=== PATIENT | female | born 1965 | race Caucasian/White ===

== ENCOUNTER 2024-12-17 06:16 | Observation (INO) ==
--- NOTE | 2024-11-20 12:28 | PAT Medication Instructions ---
Medication Instructions Date of Service November 20, 2024 Home Medications Fish Oil 1 cap PO BID biotin 1 cap PO DAILY cholecalciferol (vitamin D3) 125 mcg (5,000 unit) tablet (Vitamin D3) 125 mcg PO BID epinephrine 0.3 mg/0.3 mL injection, auto-injector (EpiPen) 0.3 mg IM Q4H PRN Anaphylaxis ezetimibe 10 mg tablet (Zetia) 10 mg PO QPM ferrous sulfate 325 mg (65 mg iron) tablet (iron) 325 mg PO DAILY glipizide 10 mg tablet 10 mg PO BID glucosamine-chondroitin 250 mg-200 mg tablet (Osteo Bi-Flex) 2 tab PO QAM insulin degludec 100 unit-liraglutide 3.6 mg/mL(3 mL) subcutaneous pen (Xultophy 100/3.6) 46 unit subcut QPM lisinopril 10 mg tablet 10 mg PO QPM metformin 500 mg tablet 1,000 mg PO BID omeprazole 20 mg capsule,delayed release 20 mg PO QAM vitamin [id number] acid 1 tab PO DAILY MEDICATION INSTRUCTIONS: Continue as directed epinephrine 0.3 mg/0.3 mL injection, auto-injector (EpiPen) 0.3 mg IM Q4H PRN Anaphylaxis STOP taking 2 weeks before surgery Fish Oil 1 cap PO BID biotin 1 cap PO DAILY glucosamine-chondroitin 250 mg-200 mg tablet (Osteo Bi-Flex) 2 tab PO QAM DO NOT take the morning of surgery glipizide 10 mg tablet 10 mg PO BID cholecalciferol (vitamin D3) 125 mcg (5,000 unit) tablet (Vitamin D3) 125 mcg PO BID metformin 500 mg tablet 1,000 mg PO BID vitamin [id number]-[id number] acid 1 tab PO DAILY ferrous sulfate 325 mg (65 mg iron) tablet (iron) 325 mg PO DAILY Take morning of surgery With a small sip of water, OTHERWISE NOTHING TO EAT OR DRINK AFTER MIDNIGHT: omeprazole 20 mg capsule,delayed release 20 mg PO QAM Take evening before surgery glipizide 10 mg tablet 10 mg PO BID cholecalciferol (vitamin D3) 125 mcg (5,000 unit) tablet (Vitamin D3) 125 mcg PO BID lisinopril 10 mg tablet 10 mg PO QPM ezetimibe 10 mg tablet (Zetia) 10 mg PO QPM metformin 500 mg tablet 1,000 mg PO BID insulin degludec 100 unit-liraglutide 3.6 mg/mL(3 mL) subcutaneous pen (Xultophy 100/3.6) 46 unit subcut QPM Other Notes If you have any questions please call us at [phone] or [phone] or [phone] or [phone]
--- NOTE | 2024-11-30 11:51 | Anesthesiology Consultation ---
Date of Service November 30, 2024 Assessment & Plan (1) Encounter for pre-operative examination: - Check BSG DOS - Infectious disease screening: Per assessment on 11/30/24- No known recent infectious disease contacts or current infectious disease symptoms. - Patient acceptable risk for surgery pending surgeon-ordered PCP preop evaluation (Carol Wilde RN PRIOR AUTHORIZATION, appt 12/05). Chart Review Chart Review: Patient seen in Pre Admission Testing Teaching & Discussion Pre-Anesthesia Teaching/Discussion Notes: Instructed NPO after midnight before surgery,except medications with 15 cc of water. Medication instructions provided according to the PAT guidelines. History Surgery Operation Date: 12/17/24 09:35 Proposed Procedures p C5-C6 Anterior Cervical Discectomy and Fusion with Spinal Cord Monitoring - Wolfgang Cruz, Height/Weight Height: 5 ft 7 in Weight: 82.7 kg Allergies Allergy/AdvReac Type Severity Reaction Status Date / Time martinez Allergy Severe Gastrointestinal Verified 11/20/24 07:37 Upset peanut Allergy Severe Difficulty Verified 11/20/24 07:37 Breathing shellfish derived Allergy Severe Anaphylaxis Verified 11/20/24 07:37 Fresh Fruit Allergy Severe Anaphylaxis Uncoded 11/20/24 07:37 Fresh Vegetable Allergy Severe Anaphylaxis Uncoded 11/20/24 07:37 Medications Home Medications Medication Instructions Recorded Confirmed Last Taken Fish Oil 1 cap PO BID 11/20/24 11/20/24 Unknown biotin 1 cap PO DAILY 11/20/24 11/20/24 Unknown cholecalciferol (vitamin D3) 125 125 mcg PO BID 11/20/24 11/20/24 Unknown mcg (5,000 unit) tablet (Vitamin D3) epinephrine 0.3 mg/0.3 mL 0.3 mg IM Q4H PRN Anaphylaxis 11/20/24 11/20/24 Unknown injection, auto-injector (EpiPen) ezetimibe 10 mg tablet (Zetia) 10 mg PO QPM 11/20/24 11/20/24 Unknown ferrous sulfate 325 mg (65 mg 325 mg PO DAILY 11/20/24 11/20/24 Unknown iron) tablet (iron) glipizide 10 mg tablet 10 mg PO BID 11/20/24 11/20/24 Unknown glucosamine-chondroitin 250 mg-200 2 tab PO QAM 11/20/24 11/20/24 Unknown mg tablet (Osteo Bi-Flex) insulin degludec 100 46 unit subcut QPM 11/20/24 11/20/24 Unknown unit-liraglutide 3.6 mg/mL(3 mL) subcutaneous pen (Carl 100/3.6) lisinopril 10 mg tablet 10 mg PO QPM 11/20/24 11/20/24 Unknown metformin 500 mg tablet 1,000 mg PO BID 11/20/24 11/20/24 Unknown omeprazole 20 mg capsule,delayed 20 mg PO QAM 11/20/24 11/20/24 Unknown release vitamin L65-fagzz acid 1 tab PO DAILY 11/20/24 11/20/24 Unknown Past Medical History Medical History Acid reflux Anemia Diabetes mellitus, type 2 Oral/Injectable Hypertension Multiple food allergies Exercise / Class Metabolic Activity II 4-5 Yardwork/Stairs/Walk up hill (one FS: No CP, no SOB) Past Surgical History Surgical History Adverse effect of anesthesia "Crying" with anesthesia emergence History of colonoscopy History of esophagogastroduodenoscopy (EGD) History of tooth extraction Upper/Lower Dentures Hx of tubal ligation Past Anesthesia History No Family Hx of Anesthesia Complications and Other ("Crying" with anesthesia emergence ) History of PONV No Hx of PONV and No Hx of Motion Sickness Social History Smoking Status: Never smoker Do You Dip or Chew Tobacco: No Hx Alcohol Use: No Hx Substance Use: No substance use type: does not use Review of Systems Patient denies chest pain, shortness of breath, dyspnea on exertion, fever, chills, cough, wheezing. Physical Exam Vital Signs BP 129/75 P 78 TEMP 97.6 SP02 99%RA RESP 16 Physical Mildly decreased cervical extension range of motion. Full TMJ range of motion. TMD 3 finger breaths Mallampati Score III Dentition: full upper/lower dentures Lungs: clear throughout to auscultation Cardiac: regular rate and rhythm, no murmurs noted Spine: normal Carotid arteries: negative bruit Extremities: no LE edema Lab Results Anesthesia Preop Results Results Anesthesia Widget: WBC 6.52 K/ul (4.8-10.8) 11/30/24 Hgb 14.1 g/dl (12.0-16.0) 11/30/24 Hct 41.2 % (37.0-47.0) 11/30/24 Plt 270 K/uL (130-400) 11/30/24 Na 140 mmol/L (136-145) 11/30/24 K 4.5 mmol/L (3.5-5.1) 11/30/24 Cl 104 mmol/L (98-107) 11/30/24 CO2 31 mmol/L (21-32) 11/30/24 BUN 15 mg/dl (6-23) 11/30/24 Creat 0.88 mg/dl (0.6-1.2) 11/30/24 Glucose Level 100 mg/dl (70-99(Fasting)) H 11/30/24 PT 10.4 Seconds (9.0-12.0) 11/30/24 PTT 28 Seconds (21-31) 11/30/24 INR 1.0 (0.9-1.1) 11/30/24 HA1c 7.2 % (4.5-5.6) H 11/30/24 Urine Color Yellow 11/30/24 Urine Appearance Clear (Clear) 11/30/24 Urine pH 5.0 (4.5-7.5) 11/30/24 Urine Specific [place] 1.011 (1.000-1.030) 11/30/24 Urine Protein Negative (Negative) 11/30/24 Urine Glucose (UA) Negative (Negative) 11/30/24 Urine Ketones Negative (Negative) 11/30/24 Urine Blood Negative (Negative) 11/30/24 Urine Nitrite Negative (Negative) 11/30/24 Urine Bilirubin Negative (Negative) 11/30/24 Urine Urobilinogen Negative (Negative) 11/30/24 Urine Leukocyte Esterase Trace (Negative) H 11/30/24 Urine WBC (Auto) 0-5 /hpf (0-5) 11/30/24 Urine RBC (Auto) 0-2 /hpf (0-2) 11/30/24 Urine Hyaline Casts (Auto) 0-2 /lpf (0-2) 11/30/24 Urine Epithelial Cells (Auto) 0-2 /hpf (0-2) 11/30/24 Urine Bacteria (Auto) None Seen (None Seen) 11/30/24 Blood Type O Positive 11/30/24 Antibody Screen NEGATIVE 11/30/24 Testing Electrocardiogram Date: 11/30/24 NSR with sinus arrhythmia at 67bpm. "Normal ECG" Chest X-Ray Date: 11/30/24 FINDINGS: Heart size and pulmonary vasculature are normal. No effusion or consolidation. IMPRESSION: No acute findings.
[2024-12-17] MEDS: LR 15ML/HR IV SCH (06:40)
[2024-12-17] MEDS ORDERED: PROPOFOL IV EMULSION 10 MG/ML 100 ML VIAL IV ONE (06:58)
[2024-12-17] MEDS: ACETAMINOPHEN 500 MG TAB PO SCH (06:59)
[2024-12-17] MEDS: GABAPENTIN 600 MG DOSE PO SCH (07:00)
[2024-12-17] MEDS ORDERED: LARYING-O-JET KIT (LTA) ONE (07:07)
[2024-12-17] MEDS ORDERED: ROCURONIUM BROMIDE 10 MG/ML 5 ML VIAL IV ONE (07:07)
[2024-12-17] MEDS ORDERED: DexMEDEtomidine HCL IV 100 MCG/ML VIAL IV ONE (07:07)
[2024-12-17] MEDS ORDERED: ePHEDrine sulfate 50 MG/ML AMP IV PRN (07:09)
[2024-12-17] MEDS ORDERED: PROMETHAZINE HCL 6.25 MG in SODIUM CHLORIDE 0.9% 50 ML IV PRN (07:09)
[2024-12-17] MEDS ORDERED: HYDROmorphone INJ 2 MG/ML SYR/VIAL IV PRN (07:09)
[2024-12-17] MEDS ORDERED: DEXAMETHASONE SOD INJ 4 MG/ML VIAL ONE (07:09)
[2024-12-17] MEDS ORDERED: PROPOFOL IV EMULSION 10 MG/ML 20 ML VIAL IV ONE (07:09)
[2024-12-17] MEDS ORDERED: fentaNYL citrate PF 100 MCG/2 ML VIAL ONE ×2 (07:09→08:25)
[2024-12-17] MEDS ORDERED: DROPERIDOL 5 MG/2 ML VIAL IV PRN (07:09)
[2024-12-17] MEDS ORDERED: MIDAZOLAM HCL 1 MG/ML 2ML VIAL ONE (07:09)
[2024-12-17] MEDS ORDERED: LIDOCAINE 2% 2 ML VIAL/AMP(20MG/ML) INFIL ONE (07:09)
[2024-12-17] MEDS ORDERED: ATROPINE SULFATE 0.1 MG/ML 10ML SYR IV PRN (07:09)
[2024-12-17] MEDS ORDERED: ONDANSETRON INJ 2 MG/ML 2 ML VIAL ONE (07:09)
--- NOTE | 2024-12-17 07:40 | History & Physical Bridge Note ---
Date of Service December 17, 2024 History & Physical Bridge Note I have examined the patient, reviewed the History & Physical and in the interval since the performance of the History & Physical I have noted the following changes of clinical significance: no changes noted
--- NOTE | 2024-12-17 07:41 | History & Physical Report ---
Date of Service December 17, 2024 Assessment & Plan (1) Herniation of cervical intervertebral disc with radiculopathy: Plan: C5-C6 anterior cervical discectomy and fusion History of Present Illness Chief Complaint: Neck and arm pain Primary Care Provider: TIFFANY Zeng This is a 59-year-old female presents with chronic persistent neck and arm pain after failing course of nonoperative care she is here for surgical intervention. Allergies Allergy/AdvReac Type Severity Reaction Status Date / Time martinez Allergy Severe Gastrointestinal Verified 12/17/24 06:46 Upset peanut Allergy Severe Difficulty Verified 12/17/24 06:46 Breathing shellfish derived Allergy Severe Anaphylaxis Verified 12/17/24 06:46 Fresh Fruit Allergy Severe Anaphylaxis Uncoded 12/17/24 06:46 Fresh Vegetable Allergy Severe Anaphylaxis Uncoded 12/17/24 06:46 Home Medications Medication Instructions Recorded Confirmed Type Fish Oil 1 cap PO BID 11/20/24 12/17/24 History biotin 1 cap PO DAILY 11/20/24 12/17/24 History cholecalciferol (vitamin D3) 125 125 mcg PO BID 11/20/24 12/17/24 History mcg (5,000 unit) tablet (Vitamin D3) epinephrine 0.3 mg/0.3 mL 0.3 mg IM Q4H PRN Anaphylaxis 11/20/24 11/20/24 History injection, auto-injector (EpiPen) ezetimibe 10 mg tablet (Zetia) 10 mg PO QPM 11/20/24 12/17/24 History ferrous sulfate 325 mg (65 mg 325 mg PO DAILY 11/20/24 12/17/24 History iron) tablet (iron) glipizide 10 mg tablet 10 mg PO BID 11/20/24 12/17/24 History glucosamine-chondroitin 250 mg-200 2 tab PO QAM 11/20/24 12/17/24 History mg tablet (Osteo Bi-Flex) insulin degludec 100 46 unit subcut QPM 11/20/24 12/17/24 History unit-liraglutide 3.6 mg/mL(3 mL) subcutaneous pen (Xultophy 100/3.6) lisinopril 10 mg tablet 10 mg PO QPM 11/20/24 12/17/24 History metformin 500 mg tablet 1,000 mg PO BID 11/20/24 12/17/24 History omeprazole 20 mg capsule,delayed 20 mg PO QAM 11/20/24 12/17/24 History release vitamin E76-zemjm acid 1 tab PO DAILY 11/20/24 12/17/24 History Past Med/Surg History Problem List (Updated 12/17/24 @ 07:40 by Wolfgang Cruz, ) Herniation of cervical intervertebral disc with radiculopathy Encounter for pre-operative examination Medical History Acid reflux Anemia Diabetes mellitus, type 2 Oral/Injectable Hypertension Multiple food allergies Surgical History Adverse effect of anesthesia "Crying" with anesthesia emergence History of colonoscopy History of esophagogastroduodenoscopy (EGD) History of tooth extraction Upper/Lower Dentures Hx of tubal ligation Social History Smoking Status: Never smoker Second Hand Exposure: No; Do You Dip or Chew Tobacco: No; Tobacco Cessation Education Requested by Patient: No Hx Alcohol Use: No Hx Substance Use: No Preferred Language: Vietnamese Communication Ability: Effective 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
[2024-12-17] MEDS: ceFAZolin 2000MG 2,000 MG/15 ML SYR IV SCH ×2 (08:00→17:14)
[2024-12-17] MEDS ORDERED: PHENYLEPHRINE 100MCG/ML 5ML SYR ONE (08:35)
[2024-12-17] MEDS ORDERED: SUGAMMADEX SODIUM 200 MG/2 ML VIAL IV ONE (08:36)
[2024-12-17] MEDS: ceFAZolin 330 MG/ML 1 GM VIAL ONE (08:36)
[2024-12-17] MEDS: FLOSEAL HEMOSTATIC MATRIX 10ML TOP ONE (08:51)
--- NOTE | 2024-12-17 08:57 | Operative Report ---
Post Operative Report Pre & Post Diagnosis Operation Date: 12/17/24 07:45 Pre-Op Diagnosis: Herniation of cervical intervertebral disc with radiculopathy Post-Op Diagnosis: Herniation of cervical intervertebral disc with radiculopathy I identified the patient and participated in the time-out.: Yes Procedure Operation Date: 12/17/24 07:45 Actual Procedures #1 anterior cervical discectomy with bilateral foraminotomies C5-C6. #2 anterior cervical thesis C5-C6. #3 placement of Spira stand-alone cage 7 mm in height at C5-C6 filled with os design bone graft. Surgeon Wolfgang Cruz, Galley Hand Daphne Albarado Estimated Blood Loss 10 Findings Consistent with Post-Op Diagnosis Specimens None Indications This is a 59-year-old female who presents manage diagnosis of failing since course of nonoperative care is here for surgical intervention. Description of Procedure Patient was met with identified informed consent obtained. Patient was then taken to the operative suite underwent intubation placed in spine position on the Waldo table with head Conte header set up operator. All bony prominences well- padded eyes inspected to ensure no external pressure placed upon them. This point the anterior cervical spine was prepped and draped in sterile fashion. The assistance of fluoroscopy identified the C5-C6 disc base and a transverse incision was placed on the right anterior aspect of the cervical spine overlying his region. Blunt dissection with assistance of bipolar electrocautery was then performed down to and exposing the anterior cervical spine at C5-C6. Self- retaining retractors placed. A complete discectomy of C5-C6 was then performed out to the uncovertebral joints bilaterally. [place] distracting pins were used to assist in visualization. Removed all posterior annular fibers longitudinal ligament bilateral foraminotomies were performed. Endplates burred to sub cortical bleeding bone and a 7 mm Spira self-retaining cage and placed and screwed into position. It was filled with os design bone graft. Incision was then copiously irrigated explored to ensure no damage to surrounding structures remaining bleeding. 10 round HEATHER drain inserted. The incision was then closed with 2 Vicryl in the fascia and 4 Monocryl for final skin closure. Steri-Strips and sterile dressing placed. Patient waken taken to PACU in stable condition. Please note spinal cord monitoring was utilized at the procedure no changes Daphne Albarado was present at the entire surgeon while the patient positioning complex portion of the surgery and final skin closure. I attest to the content of the Intraoperative Record and any orders documented therein. Any exceptions are noted below.
--- NOTE | 2024-12-17 09:15 | Fluoroscopy Report ---
FL cervical 2-3V CLINICAL HISTORY: ACDF C5-C6 COMPARISON STUDY: None FLUOROSCOPY TIME: 12 seconds FLUOROSCOPY IMAGES: 3 EXPOSURE DOSE: 1.2 mGy FINDINGS: Fluoroscopy was provided for cervical spine surgery. IMPRESSION: Intraoperative fluoroscopy. ACT 112: Negative or not required by law. Electronically signed by: Deon Ordoñez M.D. 12/17/2024 9:13 AM
[2024-12-17] MEDS ORDERED: hydrOXYzine HCl 25 MG TAB PO PRN (10:45)
[2024-12-17] MEDS ORDERED: PROMETHAZINE 12.5 MG/50.5 ML BAG IV PRN (10:45)
[2024-12-17] MEDS ORDERED: PHARMACY GLYCEMIC MGMT CONSULT PRN (10:45)
[2024-12-17] MEDS ORDERED: NALOXONE HCL 0.4 MG/1 ML VIAL/CARP IV PRN (10:45)
[2024-12-17] MEDS ORDERED: oxyCODONE HCL IR 5 MG TAB (IMMEDIATE RELEASE) PO PRN (10:45)
[2024-12-17] MEDS ORDERED: bisacodyL 10 MG SUPP PR PRN (10:45)
[2024-12-17] MEDS ORDERED: ONDANSETRON 4 MG OD TAB PO PRN (10:45)
[2024-12-17] MEDS ORDERED: ACETAMINOPHEN 1,000 MG/100 ML VIAL IV PRN (10:45)
[2024-12-17] MEDS ORDERED: DO NOT ADMINISTER PNEUMOCOCCAL VACCINE PRN (10:45)
[2024-12-17] MEDS ORDERED: MAGNESIUM HYDROXIDE SUSP 30 ML UDC PO PRN (10:45)
[2024-12-17] MEDS ORDERED: dexAMETHasone 8 MG in SYRINGE 0 ML IV PRN (10:45)
[2024-12-17] MEDS ORDERED: FAMOTIDINE 20 MG TAB PO PRN (10:45)
[2024-12-17] MEDS ORDERED: glipiZIDE 5 MG TAB PO SCH (10:45)
[2024-12-17] MEDS ORDERED: EPINEPHrine ADULT AUTO-INJECT 0.3 MG SYR IM PRN (10:45)
[2024-12-17] MEDS ORDERED: traMADol HCL 50 MG TABLET PO PRN (10:45)
[2024-12-17] MEDS ORDERED: ALUMINUM/MAGNESIUM SUSP 30 ML UDC PO PRN (10:45)
[2024-12-17] MEDS ORDERED: LORazepam 2 MG/1 ML VIAL IV PRN (10:45)
[2024-12-17] MEDS ORDERED: DO NOT ADMINISTER FLU VACCINE PRN (10:45)
[2024-12-17] MEDS ORDERED: METOCLOPRAMIDE HCL INJ 5 MG/ML 2 ML VIAL IV PRN (10:45)
[2024-12-17] MEDS ORDERED: RACEPINEPHRINE 2.25% NEBU SOLN 0.5 ML VIAL INH PRN (10:45)
[2024-12-17] MEDS ORDERED: SOD PHOSPHATE/SOD BIPHOSPHATE ENEMA 132 ML BTL PR PRN (10:45)
[2024-12-17] MEDS ORDERED: diphenhydrAMINE Capsule 25 MG CAP PO PRN (10:45)
[2024-12-17] MEDS ORDERED: HYDROmorphone INJ 1 MG/ML SYRINGE IV PRN (10:45)
[2024-12-17] MEDS ORDERED: LORazepam 0.5 MG TAB PO PRN (10:45)
[2024-12-17] MEDS ORDERED: ONDANSETRON INJ 2 MG/ML 2 ML VIAL IV PRN (10:45)
[2024-12-17] MEDS ORDERED: HYDROmorphone INJ 0.5 MG/0.5 ML SYR IV PRN (10:45)
[2024-12-17] MEDS: LR 60ML/HR IV SCH (10:58)
--- NOTE | 2024-12-17 11:13 | Pharmacy Report ---
Pharmacy Glycemic Short Note 2 - Date of Service December 17, 2024 - Glycemic Short BSG Results (Last 24 hours): 12/17/24 12/17/24 06:31 09:16 POC Glucose 116 H 103 H 12/17/24 11:43 POC Glucose 164 H OUTPATIENT ANTIDIABETIC REGIMEN: * Insulin degludec/liraglutide 46 units SQ HS, recent decrease to 40 units. * Metformin 1000mg PO BID * Glipizide 10mg PO BID * A1c 7.2% 11/30/24 ASSESSMENT: * 59 yo F, s/p C5-C6 anterior cervical discectomy and fusion by Dr Cruz. Type 2 DM, receiving IV Dexamethasone pre-op and post op x 3 days. * Patient does report having hypoglycemia at home, recent decrease in insulin. * Will begin patient on basal bolus insulin with tighter NovoLog coverage for IV Steroids and titrate to goal blood sugar. PLAN FOR INPATIENT GLYCEMIC CONTROL: * Hold outpatient diabetes medications * Basal insulin * Lantus 20 units SQ x1 dose now, then tonight 0-25 units HS (0 units BSG < 180, 15 units BSG 180-220, 25 units BSG > 220) * Bolus insulin * NovoLog per scale ACHS or Q6hrs while NPO * Goal Range: Low 110 mg/dL - High 140 mg/dL * Correction Factor: 25 mg/dL/unit * Nutritional / Prandial insulin per carb ratio of 1 unit per 8 grams CHO consumed
[2024-12-17] MEDS ORDERED: DEXTROSE 50% 50 ML SYRINGE IV PRN (11:15)
[2024-12-17] MEDS ORDERED: GLUCOSE 40% GEL 15 GM TUBE PO PRN (11:15)
[2024-12-17] MEDS ORDERED: GLUCAGON FOR INJ 1 MG VIAL SQ PRN (11:15)
[2024-12-17] MEDS ORDERED: GLUCOSE 10 TAB/TUBE PO PRN (11:15)
[2024-12-17] MEDS ORDERED: CARBOHYDRATES FOR HYPOGLYCEMIA PO PRN (11:15)
[2024-12-17] MEDS: NON-FORMULARY MEDICATION (Vitamin B12-Folic Acid 1 TAB) PO SCH (11:17)
--- NOTE | 2024-12-17 11:23 | Hospitalist Consultation ---
Date of Consultation December 17, 2024 Assessment & Plan (1) Herniation of cervical intervertebral disc with radiculopathy: This is a 59 y/o female with cervical disc disease with radiculopathy, insulin- requiring DM2, HTN, acid reflux, and multiple food allergies who underwent C5-C6 ACDF today by Dr. Cruz and for whom we have been consulted to assist with post-operative medical management. Currently, pt has no specific complaints. - Pain control, DVT prophylaxis, activity per primary team - Labs in the AM - CBC, BMP. Monitor for post-op blood loss anemia. - Incentive spirometry (2) Diabetes mellitus, type 2: Notes issues with hypoglycemia at home. Glycemic pharmacy consulted to assist with management. Spoke with pharmacist - appreciate recommendations. Recommend BSG ACHS, diabetic diet. (3) Hypertension: BP slightly elevated at present but pt attributes to anxiety. Will continue to monitor. Continue home Lisinopril (4) Acid reflux: Chronic, stable Continue daily PPI therapy Plan Pt seen and reviewed with collaborating physician, Dr. Sanders. Plan of care discussed and as outlined above. Thank you for this consultation. We will continue to follow this patient with you. A member of the [facility]ist team is available 28/03 via the role in [employer] - please don't hesitate to reach out with questions. I spent a total of 55 minutes coordinating, documenting, and providing care for this patient excluding time spent in the performance of separately billed services or time by another provider/QHP. Kelly Odell PA-C Supervising Physician Co-Signing Physician Notes Patient seen and examined independently. She is comfortable; not in distress. She denies fever, chills, chest pain, shortness of breath or abdominal pain. Plan for pain control, bowel regimen, PT OT eval and DVT prophylaxis as per primary. I have reviewed the advanced practitioner's documentation, and I agree with, and take responsibility for the plan of care I spent a total of 15 minutes coordinating, documenting, and providing care for this patient excluding time spent in the performance of separately billed services. All of the aforementioned completed while collaborating with the assigned advanced practitioner for a full treatment plan History of Present Illness Reason for Consultation: Post-operative medical management Requesting Physician: Dr. Wolfgang Cruz Attending Physician: Wolfgang Cruz, DO History of Present Illness This is a 59 y/o female with cervical disc disease with radiculopathy, insulin- requiring DM2, HTN, acid reflux, and multiple food allergies who underwent C5-C6 ACDF today by Dr. Cruz and for whom we have been consulted to assist with post-operative medical management. Currently, pt is seen post-operative sitting up in bed and without significant complaint. She reports some generalized stiffness and upper back soreness but relates this to how she was lying on the table during surgery. She denies significant neck pain, upper extremity numbness/tingling, or weakness. She denies chest pain, dyspnea, headache, dizziness, palpitations. She reports that her diabetes is typically well- controlled and in fact, she has had difficulty with low sugars recently such that her evening insulin was recently decreased from 46 to 40 units daily. Even with the decreased dose, she has continued to note some AM lows. She reports multiple food allergies so she is very cautious with her diet. Her blood pressure is typically well-controlled although it was elevated this morning, which she attributes to anxiety about the surgery. Has been able to drink water post-operatively without dysphagia. Allergies Allergy/AdvReac Type Severity Reaction Status Date / Time martinez Allergy Severe Gastrointestinal Verified 12/17/24 06:46 Upset peanut Allergy Severe Difficulty Verified 12/17/24 06:46 Breathing shellfish derived Allergy Severe Anaphylaxis Verified 12/17/24 06:46 Fresh Fruit Allergy Severe Anaphylaxis Uncoded 12/17/24 06:46 Fresh Vegetable Allergy Severe Anaphylaxis Uncoded 12/17/24 06:46 Home Medications Medication Instructions Recorded Confirmed Type Fish Oil 1 cap PO BID 11/20/24 12/17/24 History biotin 1 cap PO DAILY 11/20/24 12/17/24 History cholecalciferol (vitamin D3) 125 125 mcg PO BID 11/20/24 12/17/24 History mcg (5,000 unit) tablet (Vitamin D3) epinephrine 0.3 mg/0.3 mL 0.3 mg IM Q4H PRN Anaphylaxis 11/20/24 11/20/24 History injection, auto-injector (EpiPen) ezetimibe 10 mg tablet (Zetia) 10 mg PO QPM 11/20/24 12/17/24 History ferrous sulfate 325 mg (65 mg 325 mg PO DAILY 11/20/24 12/17/24 History iron) tablet (iron) glipizide 10 mg tablet 10 mg PO BID 11/20/24 12/17/24 History glucosamine-chondroitin 250 mg-200 2 tab PO QAM 11/20/24 12/17/24 History mg tablet (Osteo Bi-Flex) insulin degludec 100 40 unit subcut QPM 11/20/24 12/17/24 History unit-liraglutide 3.6 mg/mL(3 mL) subcutaneous pen (Xultophy 100/3.6) lisinopril 10 mg tablet 10 mg PO QPM 11/20/24 12/17/24 History metformin 500 mg tablet 1,000 mg PO BID 11/20/24 12/17/24 History omeprazole 20 mg capsule,delayed 20 mg PO QAM 11/20/24 12/17/24 History release vitamin A68-vcprw acid 1 tab PO DAILY 11/20/24 12/17/24 History oxycodone 5 mg tablet 5 mg PO Q6H PRN pain #20 tabs 12/17/24 Rx tramadol 50 mg tablet 50 mg PO Q6H PRN pain, moderate 12/17/24 Rx #30 tabs Patient History Medical History Acid reflux Anemia Diabetes mellitus, type 2 Oral/Injectable Hypertension Multiple food allergies Surgical History Adverse effect of anesthesia "Crying" with anesthesia emergence History of colonoscopy History of esophagogastroduodenoscopy (EGD) History of tooth extraction Upper/Lower Dentures Hx of tubal ligation Family History (Updated 12/17/24 @ 11:35 by Sara Odell PA-C) Other Family history non-contributory Social History Smoking Status: Never smoker Second Hand Exposure: No; Do You Dip or Chew Tobacco: No; Tobacco Cessation Education Requested by Patient: No Hx Alcohol Use: No Hx Substance Use: No Preferred Language: [place] Citizen Communication Ability: Effective Operators Teacher Required: No Beliefs That Will Affect Care: None Current Living Situation: Spouse Other Information That Helps Us Care for You: No Feels Safe at Home: Yes Safety Concerns: Feels Safe At This Time Assistive Devices: Denture - Upper, Denture - Lower and Glasses Review of Systems Review of Systems: All systems reviewed & are unremarkable except as noted in Subjective Physical Exam Physical Exam: General: awake, alert, NAD HEENT: no scleral icterus, moist mucus membranes Neck: hard cervical collar in place, dressing C/D/I, drain with serous drainage Heart: RRR, no M/G/R Lungs: CTA bilaterally on the anterior Abdomen: soft, NT, +BS Extremities: no pedal edema, distal pulses intact and equal (UE and LE), marriage counselor minister strength intact and equal bilaterally Skin: warm, dry, no jaundice or rashes noted Neurologic: Ox3, no confusion or dysarthria. moving all extremities without focal deficit noted. Results & Data Results & Data Vital Signs (Past 12 Hours) Vital Signs Temp Pulse Pulse Resp BP BP Pulse Ox 12/17/24 11:12 36.4 C L 76 16 147/92 H 95 12/17/24 10:55 12/17/24 10:45 20 96 12/17/24 10:39 36.6 C 77 16 139/82 94 12/17/24 10:20 82 15 139/75 93 12/17/24 10:05 73 13 127/81 94 12/17/24 09:50 36.5 C 80 15 142/92 H 95 12/17/24 09:40 78 15 150/97 H 94 12/17/24 09:30 81 18 137/78 95 12/17/24 09:20 75 15 137/71 96 12/17/24 09:13 36.1 C L 91 H 22 143/84 H 95 12/17/24 06:37 36.7 C 78 20 161/82 H 99 Pulse Ox O2 Del Method O2 Del Method O2 Flow Rate 12/17/24 11:12 Room Air 12/17/24 10:55 97 Room Air 12/17/24 10:45 Nasal Cannula 3 12/17/24 10:39 Room Air 12/17/24 10:20 Room Air 0 12/17/24 10:05 Nasal Cannula 2 12/17/24 09:50 Room Air 0 12/17/24 09:40 Oxymask 4 12/17/24 09:30 Oxymask 4 12/17/24 09:20 Oxymask 12 12/17/24 09:13 Oxymask 12 12/17/24 06:37 Room Air Laboratory Results Lab Results 12/17/24 12/17/24 Range/Units 06:31 09:16 POC Glucose 116 H 103 H (70-99) mg/dl Medications Administered Acetaminophen (Acetaminophen 500 Mg Tab) 1,000 mg PO PREOP NADIA Stop: 12/17/24 18:00 Last Admin: 12/17/24 06:59 Dose: 1,000 mg Documented By: KIMBERLYN Gabapentin (Gabapentin 600 Mg Dose) 600 mg PO PREOP NADIA Stop: 12/17/24 18:00 Last Admin: 12/17/24 07:00 Dose: 600 mg Documented By: KIMBERLYN Lactated Ringer's (Lr) 1,000 mls @ 15 mls/hr IV .Q24H NADIA Stop: 12/18/24 05:59 Last Admin: 12/17/24 06:40 Dose: 15 mls/hr Documented By: KIMBERLYN Lactated Ringer's (Lr) 1,000 mls @ 60 mls/hr IV .[id number] NADIA Stop: 12/17/24 22:39 Last Admin: 12/17/24 10:58 Dose: Not Given Documented By: SHONDA Cefazolin Sodium (Ancef 2000mg) 2,000 mg in 15 mls @ 3.75 mls/min IV PREOP NADIA; Protocol Stop: 12/17/24 18:00 Last Admin: 12/17/24 08:00 Dose: 3.75 mls/min Documented By: AUGUSTINE Discontinued Medications Cefazolin Sodium (Cefazolin 330 Mg/Ml 1 Gm Vial) Confirm Administered Dose 990 mg .ROUTE .STK-MED ONE Stop: 12/17/24 07:17 Last Admin: 12/17/24 08:36 Dose: 990 mg Documented By: GMRussell Miscellaneous ( Floseal Hemostatic Matrix 10ml) 10 ml TOP ONCE ONE Stop: 12/17/24 08:50 Last Admin: 12/17/24 08:51 Dose: 10 ml Documented By: GMRussell Non-Formulary Medication (Vitamin S79-Xlzwv Acid) 1 tab PO DAILY NADIA Stop: 01/16/25 10:44 Last Admin: 12/17/24 11:17 Dose: Not Given Documented By: SHONDA (2) Diabetes mellitus, type 2 Diabetes mellitus complication status: with other specified complication Diabetes mellitus group home insulin use: with group home use Qualified Code(s): E11.69 - Type 2 diabetes mellitus with other specified complication; Z79.4 - rn long term care (current) use of insulin (3) Hypertension Hypertension type: unspecified Qualified Code(s): I10 - Essential (primary) hypertension (4) Acid reflux Esophagitis presence: esophagitis presence not specified Qualified Code(s): K21.9 - Gastro-esophageal reflux disease without esophagitis
[2024-12-17] MEDS: PANTOprazole 40 MG TAB PO SCH (11:31)
[2024-12-17] MEDS: CHOLECALCIFEROL 125 MCG (5,000 UNITS) TAB PO SCH (11:31)
[2024-12-17] MEDS: dexAMETHasone 6 MG in SYRINGE 0 ML IV SCH (11:31)
[2024-12-17] MEDS: INSULIN ASPART PER UNIT CHARGE SC SCH (12:05)
[2024-12-17] MEDS: LANTUS PER UNIT CHARGE SC ONE (12:05)
--- NOTE | 2024-12-17 12:09 | Anesthesiology Progress Note ---
Date of Service December 17, 2024 Anesthesia Post Procedure Vital Signs Vital Signs: Temp Pulse Pulse Resp BP BP Pulse Ox 12/17/24 11:39 75 16 145/82 H 94 12/17/24 11:12 36.4 C L 76 16 147/92 H 95 12/17/24 10:55 12/17/24 10:45 20 96 12/17/24 10:39 36.6 C 77 16 139/82 94 12/17/24 10:20 82 15 139/75 93 12/17/24 10:05 73 13 127/81 94 12/17/24 09:50 36.5 C 80 15 142/92 H 95 12/17/24 09:40 78 15 150/97 H 94 12/17/24 09:30 81 18 137/78 95 12/17/24 09:20 75 15 137/71 96 12/17/24 09:13 36.1 C L 91 H 22 143/84 H 95 12/17/24 06:37 36.7 C 78 20 161/82 H 99 Pulse Ox O2 Del Method O2 Del Method O2 Flow Rate 12/17/24 11:39 Room Air 12/17/24 11:12 Room Air 12/17/24 10:55 97 Room Air 12/17/24 10:45 Nasal Cannula 3 12/17/24 10:39 Room Air 12/17/24 10:20 Room Air 0 12/17/24 10:05 Nasal Cannula 2 12/17/24 09:50 Room Air 0 12/17/24 09:40 Oxymask 4 12/17/24 09:30 Oxymask 4 12/17/24 09:20 Oxymask 12 12/17/24 09:13 Oxymask 12 12/17/24 06:37 Room Air Pain Intensity Posterior Neck: Pain Intensity: 4 Transfer of Care Handoff Completed per policy Notes Mental Status: alert / awake / arousable and participated in evaluation Nausea / Vomiting: adequately controlled Pain: adequately controlled Airway Patency, RR, SpO2: stable & adequate BP & HR: stable & adequate Hydration State: stable & adequate Anesthetic Complications: no major complications apparent and Pt Satisfied with anesthetic care
[2024-12-17] MEDS: ACETAMINOPHEN 500 MG TAB PO PRN (12:36)
[2024-12-17] MEDS: LANTUS PER UNIT CHARGE SC SCH (20:42)
[2024-12-17] MEDS: DOCUSATE SODIUM/SENNA 50/8.6MG TAB PO SCH (20:47)
[2024-12-17] MEDS: EZETIMIBE 10 MG TAB PO SCH (20:55)
[2024-12-17] MEDS: lisinopril 10 MG TAB PO SCH (20:55)
[2024-12-18] MEDS: POLYETHYLENE (MIRALAX) 17 GM PACK PO SCH (05:14)
[2024-12-18 06:58] LABS: Basophils # (auto) 0.01 K/uL (0.00-0.20); Basophils % (auto) 0.1 %; Eosinophils # (auto) 0.01 K/uL (0.00-0.50); Eosinophils % (auto) 0.1 %; Hematocrit (blood only) 39.5 % (37.0-47.0); Hemoglobin 13.4 g/dl (12.0-16.0); Immature Granulocytes # (auto) 0.05 K/uL (0.01-0.20); Immature Granulocytes % (auto) 0.4 %; Lymphocytes # (auto) 1.99 K/uL (1.20-3.40); Mean Corpuscular Hemoglobin 31.2 pg (25.0-34.0); Mean Corpuscular Hgb Conc 33.9 g/dL (32.0-36.0); Mean Corpuscular Volume 91.9 fL (80.0-100.0); Mean Platelet Volume 9.5 fL (9.4-12.4); Neutrophils # (auto) 8.97 K/uL (1.40-6.50); Neutrophils % (auto) 76.4 %; Platelet Count 293 K/uL (130-400); RDW Coefficient of Variation 12.3 % (11.5-14.5); White Blood Count 11.73 K/ul (4.8-10.8)
[2024-12-18 07:23] LABS: BUN Creatinine Ratio 12.1 (10-20); Creatinine Clr Calc Pharmacy 72.5 ml/min; Potassium 4.6 mmol/L (3.5-5.1)
[2024-12-18 07:50] VITALS: RESP 16
[2024-12-18] MEDS: LANTUS PER UNIT CHARGE SC SCH (08:49)
--- NOTE | 2024-12-18 09:38 | Pharmacy Report ---
Pharmacy Glycemic Short Note 2 - Date of Service December 18, 2024 - Glycemic Short BSG Results (Last 24 hours): 12/17/24 12/17/24 12/17/24 11:43 16:38 20:26 Glucose POC Glucose 164 H 195 H 197 H 12/18/24 12/18/24 06:31 07:36 Glucose 171 H POC Glucose 147 H OUTPATIENT ANTIDIABETIC REGIMEN: * Insulin degludec/liraglutide 46 units SQ HS, recent decrease to 40 units. * Metformin 1000mg PO BID * Glipizide 10mg PO BID * A1c 7.2% 11/30/24 ASSESSMENT: 12/18 * POD1, Patient received 46 units of insulin yesterday, 35 units basal, blood sugar at goal this morning. * Patient continues on Dexamethasone 6mg IV X 2 more days, will give Lantus with this and tight NovoLog coverage to cover steroid effects on blood sugar. * Continue PRN Lantus HS as patient is on at home. 12/17 * 59 yo F, s/p C5-C6 anterior cervical discectomy and fusion by Dr Cruz. Type 2 DM, receiving IV Dexamethasone pre-op and post op x 3 days. * Patient does report having hypoglycemia at home, recent decrease in insulin. * Will begin patient on basal bolus insulin with tighter NovoLog coverage for IV Steroids and titrate to goal blood sugar. PLAN FOR INPATIENT GLYCEMIC CONTROL: * Hold outpatient diabetes medications * Basal insulin * Lantus 30 units SQ Daily with IV dexamethasone, 10 units SQ HS for BSG > 200mg/dl * Bolus insulin * NovoLog per scale ACHS or Q6hrs while NPO * Goal Range: Low 110 mg/dL - High 140 mg/dL * Correction Factor: 25 mg/dL/unit * Nutritional / Prandial insulin per carb ratio of 1 unit per 7 grams CHO consumed
--- NOTE | 2024-12-18 09:53 | Discharge Summary ---
Date of Service December 18, 2024 Admission HPI Per Admitting Provider This is a 59-year-old female presents with chronic persistent neck and arm pain after failing course of nonoperative care she is here for surgical intervention. Principal Diagnosis Cervical discrimination with radiculopathy Discharge Data Allergies Allergy/AdvReac Type Severity Reaction Status Date / Time martinez Allergy Severe Gastrointestinal Verified 12/17/24 06:46 Upset peanut Allergy Severe Difficulty Verified 12/17/24 06:46 Breathing shellfish derived Allergy Severe Anaphylaxis Verified 12/17/24 06:46 Fresh Fruit Allergy Severe Anaphylaxis Uncoded 12/17/24 06:46 Fresh Vegetable Allergy Severe Anaphylaxis Uncoded 12/17/24 06:46 Consultations 12/17/24 10:45 Consult Hospitalist Routine Procedures Performed Operation Date: 12/17/24 07:45 Actual Procedures p C5-C6 Anterior Cervical Discectomy and Fusion, Spinal Cord Monitoring(Not Applicable) - Wolfgang Cruz DO Ordered Studies 12/17/24 07:45 FL cervical 2-3V Routine Hospital Course (1) Herniation of cervical intervertebral disc with radiculopathy: Patient underwent anterior cervical discectomy and fusion Supa was taken to orthopedic for postoperative pain postoperatively she progressed appropriately. Marked improvement of her neck and arm symptoms. HEATHER drain decreasing. Extra strength testing. Pain controlled. Swallowing well. No hoarseness. Subsidy discharged home. Discharge orders instructions from the chart for review. Total Time Total Time Spent Total Time Spent (In Minutes): 20 minutes Discharge Plan Discharge Items Patient Disposition: Home - Self-Care Reason For Visit: Foraminal Stenosis of Cervical Region, Cervical Di Discharge Diagnosis: Cervical spondylosis with radiculopathy Activity: As commented below Non-emergency contact: Primary Care Provider Call non-emergency contact if: you have any medication questions Follow-up/Referrals: Carol Wilde CRNP [Primary Care Provider] - Diet: Regular Addtl Attending Provider Instructions: ACTIVITY RECOMMENDATIONS: SELF CARE INSTRUCTIONS AFTER CERVICAL FUSIONS 1. No smoking. Smoking drastically decreases the chance of a solid fusion. 2. No bending, lifting more than 5 pounds, or twisting (roll like a log when turning in bed). 3. You may shower 3 days after surgery. Thoroughly dry wound. Do not soak in the tub. 4. Cervical collar: Must be worn at all times including sleeping. You may remove the brace only to bath, eat and if you are sitting in a recliner. 5. Please walk as much as you can for exercise. Gradually increase the distance that you walk as your endurance increases. 6. You may return to previous diet. SPECIAL CARE INSTRUCTIONS: VERY IMPORTANT TO READ AND REVIEW A. Do not take any anti-inflammatory medications (i.e. Indocin, Advil, Aspirin, Naprosyn, Aleve, Motrin, etc.) as these may inhibit the chance of a solid fusion. Tylenol is okay to take. B. Your surgical incision has been closed with a cosmetic suture under the skin that will dissolve in about 6 weeks. In 14 days, you can use a pair of clean scissors and cut the suture that is left outside of the skin at the ends of your incision. C. Complications are uncommon, but please contact us if you have any signs or symptoms of: 1. wound infection (fever higher than 102.5 degrees F, redness, separation of wound, drainage, or increasing pain from the incision) 2. blood clots in legs (pain, swelling, redness and warmth in legs) 3. urinary tract infection (fever higher than 102.5 degrees, burning upon urination or increased frequency of urination) 4. nerve problems (inability to walk on your toes or heels, numbness, loss of bowel or bladder control) 5. any other symptoms that concern you. D. Please call the office at if you have any concerns or questions about your operation or recovery. MANAGING PAIN AFTER SPINAL SURGERY 1. Narcotic medication is intended for short-term use and will be provided for surgical pain. Surgical pain usually lasts for a period of 4-6 weeks. Narcotic medication includes Percocet, Vicodin, Darvocet, Tylenol #3 or Lortab. 2. Longer-term pain is more appropriately treated with non-narcotic medication such as Tylenol ES. 3. Muscle spasm is not appropriately treated with narcotics. Muscle relaxers such as Soma, Flexeril or Skelaxin can be used along with Tylenol ES. 4. Remember that we all live with some "aches and pains". This is not unusual or uncommon after an injury or as we get older. 5. We will provide appropriate medication within the normal guidelines of their prescribed use. We will also be very cautious and aware of potential abuse and extended duration of patients' medication needs. 6. Please allow 2-3 days to process refills. Prescriptions will not be mailed but must be picked up at the office. FOLLOW UP VISIT: Keep your scheduled follow-up appointment. Any questions, please call the office at . Pending Studies at Discharge: No Stand-Alone Forms: [facility] Medications and DC Order Prescriptions: New tramadol 50 mg tablet 50 mg PO Q6H PRN (Reason: pain, moderate) Qty: 30 0RF oxycodone 5 mg tablet 5 mg PO Q6H PRN (Reason: pain) Qty: 20 0RF Continued metformin 500 mg Tablet 1,000 mg PO BID glipizide 10 mg Tablet 10 mg PO BID ferrous sulfate [iron] 325 mg (65 mg iron) Tablet 325 mg PO DAILY lisinopril 10 mg Tablet 10 mg PO QPM omeprazole [Prilosec] 20 mg Capsule,Delayed Release(Dr/Ec) 20 mg PO QAM epinephrine [EpiPen] 0.3 mg/0.3 mL Auto-Injector 0.3 mg IM Q4H PRN (Reason: Anaphylaxis) ezetimibe [Zetia] 10 mg Tablet 10 mg PO QPM glucosamine-chondroitin [Osteo Bi-Flex] 250-200 mg Tablet 2 tab PO QAM Rx Instructions: give after food/meal cholecalciferol (vitamin D3) [Vitamin D3] 125 mcg (5,000 unit) Tablet 125 mcg PO BID Rx Instructions: Preop for procedure 12/17/24 Xultophy 100/3.6 100 unit-3.6 mg /mL (3 mL) Insulin Pen 40 unit SUBCUT QPM Fish Oil 1 cap PO BID biotin 1 cap PO DAILY vitamin P72-ghtpi acid 1 tab PO DAILY Discharge Orders: Discharge Order (Routine); Ordered 12/18/24 Ordered By: Wolfgang Cruz Admission Data Admit Date/Time: 12/17/24 09:00 Attending Provider: Wolfgang Cruz Admit Provider: Wolfgang Cruz Primary Care Provider: Carol Wilde Other Providers: Dl Sanders
[2024-12-18 11:34] VITALS: BP 124/72; PULSE 73; TEMP 98.2; O2SAT 98
== END 2024-12-18 11:35 | disposition home or self-care (01) ==
LOC: ASU 06:16 → 3E 06:16 → 3W 18:50